=== PATIENT | female | born 1995 | race Caucasian/White ===

== ENCOUNTER 2023-09-13 14:25 | Inpatient (IN) ==
[2023-09-13] MEDS ORDERED: OXYTOCIN 30 UNITS/NSS 30 UNITS/500 ML BAG IV PRN ×2 (14:32→23:57)
[2023-09-13] MEDS ORDERED: LIDOCAINE 1% LOCAL 20 ML VIAL INFIL PRN (14:32)
--- NOTE | 2023-09-13 14:46 | History & Physical Report ---
"Date of Service September 13, 2023 Assessment & Plan (1) Encounter for induction of labor: (2) Group beta Strep positive: Plan Desires unmedicated childbirth, if possible GBS+, will treat with ancef in setting of penicillin allergy anesthesia consulted if epidural desired Pitocin start at 1, increase by 1 arom when indicated monitor tracing, category 1 Admission and Anticipated Discharge Date Admission Date: September 13, 2023 History of Present Illness Primary Care Provider: TANNER RitterC 28 yo at 39w6d admitted for IOL. Has penicillin allergy. Denies GUZMAN, CP, SOB, N/V/D, LE pain. GBS+, RH+, +FM, -LOF, +ctx Allergies Allergy/AdvReac Type Severity Reaction Status Date / Time Penicillins Allergy Severe Anaphylaxis Verified 09/13/23 14:43 tramadol Allergy Intermediate Difficulty Verified 09/13/23 14:43 Breathing sulfa Allergy Hives Uncoded 09/13/23 14:43 Home Medications Medication Instructions Recorded Confirmed Type [id number] acid 1 tab PO DAILY 01/23/23 09/13/23 History [ Multi] esomeprazole magnesium 20 mg 20 mg PO DAILY 08/23/23 09/13/23 History capsule,delayed release (Nexium) Tums 1 tab PO Q16W PRN Heartburn 09/13/23 09/13/23 History Tylenol 1 tab PO DIRECTED PRN Headache 09/13/23 09/13/23 History Patient History Medical History Hx of migraines Varicella vaccination History of chicken pox Arnold-Chiari malformation Surgical History No history of previous surgery Family History Grandmother (Maternal) Hypertension A-fib Pacemaker Denies family history of Ovarian cancer Breast cancer Colorectal cancer Social History Smoking Status: Never smoker Do You Dip or Chew Tobacco: No; Hx Alcohol Use: No Hx Substance Use: No Preferred Language: Bhutanese Communication Ability: Effective Systems Architect Required: No Beliefs That Will Affect Care: None marital status: marital status details: Mendoza Olmedo(28) [phone] Current Living Situation: Spouse and Family Current Living Situation Comment: Patient lives with spouse, daughter, cat- spouse changing litter current occupational status: employed 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 Feels Safe at Home: Yes Safety Concerns: Feels Safe At This Time OB History History : 3 Full term: 2 Premature: 0 Total Number of Induced Abortions: 0 Total Number of Spontaneous Abortions: 0 Ectopics: 0 Multiple births: 0 Number of Living Children: 2 Menstrual History Last menstrual period: Yes Menstrual reliability: definite Flow: normal Menstrual regularity: regular Monthly: Yes Age at menarche: 13 On control pills at conception: No Date of positive home test: 01/07/23 Menstrual history comments: cycles 28 -29 days Details: last pap 2021 [place], normal per patient Review of Systems reviewed, per HPI Physical Exam Physical Exam: General: patient resting comfortably, NAD, non-toxic in appearance, answers questions appropriately. Skin: warm, dry, intact HEENT: NC/AT, anicteric sclera, conjunctiva without injection, moist mucus membranes Heart: +S1/S2, regular, no m/r/g Lungs: equal air entry bilaterally, no rales/rhonchi/wheezes Abd: +BS, soft, NT, gravid uterus Cervical: 3|75|-2, mid, soft Ext: warm, no clubbing/cyanosis or edema Neuro: nonfocal, speech intact, no facial droop, moving all extremities. : FHR baseline 130s, moderate variability, accelerations present, decelerations absent Results & Data Vital Signs (Past 12 Hours) Vital Signs Pulse BP 09/13/23 14:35 86 135/84 Supervising Physician Co-Signing Physician Notes Resident Physician Supervision Note: I interviewed and examined the patient. Discussed with Dr. Ferreira and agree with findings and plan as documented in the note. Any exceptions or clarifications are listed here: presents for elective induction [place] Favorable cervix. Category one fetus. No real uterine activity. GBS positive, pcn allergic so will go with ancef q 8. Plan pitocin and arom. anticipate . Documented By: Madisyn Nunes MD, FACOG Resident Activity Tracking Resident Involvement: Resident Care Provided Care Provided: Adult [facility] Medicine"
[2023-09-13 15:17] LABS: Hematocrit (blood only) 29.1 % (37.0-47.0); Hemoglobin 9.6 g/dl (12.0-16.0); Mean Corpuscular Hemoglobin 27.8 pg (25.0-34.0); Mean Corpuscular Volume 84.3 fL (80.0-100.0); Mean Platelet Volume 12.5 fL (9.4-12.4); Platelet Count 218 K/uL (130-400); RDW Coefficient of Variation 13.5 % (11.5-14.5); RDW Standard Deviation 41.5 fL (36.4-46.3); Red Blood Count 3.45 M/uL (4.20-5.40); White Blood Count 9.88 K/ul (4.8-10.8)
[2023-09-13] MEDS: ceFAZolin 2000MG 2,000 MG/15 ML SYR IV STA (15:49)
[2023-09-13] MEDS ORDERED: Nursing to Pharmacy Communication SCH (16:30)
[2023-09-13] MEDS: OXYTOCIN 30 UNITS/NSS 30 UNITS/500 ML BAG IV PRN (16:35)
--- NOTE | 2023-09-13 17:33 | Labor Progress Brief Note ---
Date of Service September 13, 2023 Subjective First dose of ancef in . Pit at 2 Assessment & Plan (1) Encounter for induction of labor: (2) Group beta Strep positive: Plan fetus category one. arom. continue pit. anticipate . Admission and Anticipated Discharge Date Admission Date: September 13, 2023 Physical Exam Physical Exam: cx--unchanged, arom, clear toco--rare efm--130s wtih mod variability, accels to 160s, no decels Results & Data Vital Signs (Past 12 Hours) Vital Signs Temp Pulse Resp BP 09/13/23 17:29 80 09/13/23 17:29 137/77 09/13/23 16:32 16 09/13/23 16:32 36.7 C 16 09/13/23 16:32 76 09/13/23 16:32 120/72 09/13/23 14:50 36.8 C 86 16 135/84 09/13/23 14:35 86 135/84 Coding Level of Care Code None Diagnoses Encounter for induction of labor Z34.90 Group beta Strep positive B95.1
[2023-09-13] MEDS: LACTATED RINGER'S 1,000 ML IV PRN (18:38)
[2023-09-13] MEDS ORDERED: NALOXONE HCL 1 MG in SODIUM CHLORIDE 0.9% 1,000 ML IV PRN (20:03)
[2023-09-13] MEDS ORDERED: LIDOCAINE 2% MPF LOCAL 5 ML VIAL EPI PRN (20:03)
[2023-09-13] MEDS ORDERED: BUPIVACAINE 0.25% PF 30 ML VIAL EPI PRN (20:03)
[2023-09-13] MEDS ORDERED: NALOXONE HCL 0.4 MG/1 ML VIAL/CARP IV PRN (20:03)
[2023-09-13] MEDS ORDERED: SODIUM CHLORIDE 0.9% PF INJ 10 ML VIAL EPI PRN (20:03)
[2023-09-13] MEDS ORDERED: fentaNYL citrate PF 100 MCG/2 ML VIAL EPI PRN (20:03)
[2023-09-13] MEDS ORDERED: BUPIVACAINE 0.25% PF 30 ML VIAL EPI STA (20:03)
[2023-09-13] MEDS ORDERED: NALBUPHINE HCL 5 MG in SYRINGE 0 ML IV PRN (20:03)
[2023-09-13] MEDS ORDERED: diphenhydrAMINE 50 MG/ML VIAL IV PRN (20:03)
[2023-09-13] MEDS ORDERED: ROPIVACAINE 0.5% PF 5 MG/ML 20 ML VIAL EPI PRN (20:03)
[2023-09-13] MEDS ORDERED: ePHEDrine sulfate 50 MG/ML AMP IV PRN (20:03)
--- NOTE | 2023-09-13 20:04 | Anesthesiology Consultation ---
Date of Service September 13, 2023 Assessment & Plan Chart Review Chart Review: Acceptable Risk for Labor Epidural Consults Requested none History Height/Weight Height: 5 ft 8 in Weight: 84.368 kg Allergies Allergy/AdvReac Type Severity Reaction Status Date / Time Penicillins Allergy Severe Anaphylaxis Verified 09/13/23 14:43 tramadol Allergy Intermediate Difficulty Verified 09/13/23 14:43 Breathing sulfa Allergy Hives Uncoded 09/13/23 14:43 Medications Home Medications Medication Instructions Recorded Confirmed Last Taken [id number] acid 1 tab PO DAILY 01/23/23 09/13/23 09/12/23 08:00 [ Multi] esomeprazole magnesium 20 mg 20 mg PO DAILY 08/23/23 09/13/23 09/12/23 21:00 capsule,delayed release (Nexium) Tums 1 tab PO Q16W PRN Heartburn 09/13/23 09/13/23 Unknown Tylenol 1 tab PO DIRECTED PRN Headache 09/13/23 09/13/23 09/12/23 21:00 Active Medications Generic Name Dose Route Start Last Admin Trade Name Freq PRN Reason Stop Dose Admin Oxytocin 30 units in 500 mls @ 6 mls/hr 09/13/23 14:32 09/13/23 19:15 Pitocin 30 Units/Nss IV 09/15/23 14:31 0.36 units/hr .Q24H PRN 6 mls/hr Labor Induction/Augmentation Titration Protocol 0.36 UNITS/HR Lactated Ringer's 1,000 mls @ 125 mls/hr 09/13/23 14:32 09/13/23 19:03 Lr IV 09/15/23 14:31 125 mls/hr .Q8H PRN Infusion L&D Protocol Protocol Past Medical History Medical History Hx of migraines Varicella vaccination History of chicken pox Arnold-Chiari malformation Past Family History Family History Grandmother (Maternal) Hypertension A-fib Pacemaker Denies family history of Ovarian cancer Breast cancer Colorectal cancer Past Surgical History Surgical History No history of previous surgery Social History Smoking Status: Never smoker Do You Dip or Chew Tobacco: No Hx Alcohol Use: No Hx Substance Use: No substance use type: former substance user Physical Exam Vital Signs Last Vital Signs Temp 36.5 C 09/13/23 19:16 Pulse 71 09/13/23 19:33 Resp 18 09/13/23 19:16 BP 130/81 09/13/23 19:33 Testing Laboratory Results 09/13/23 14:58
[2023-09-13] MEDS: fentANYL 2 MCG/ML BUPIVacaine 0.125%-NSS 100ML BAG EPI PRN (20:36)
--- NOTE | 2023-09-13 21:18 | Labor Progress Brief Note ---
Date of Service September 13, 2023 Subjective Desired epidural, comfortable. Assessment & Plan (1) Encounter for induction of labor: Plan continue current plan. fetus category one. anticipate . Admission and Anticipated Discharge Date Admission Date: September 13, 2023 Physical Exam Physical Exam: cx--5/100/-2 toco--q3-5min, pit t8 efm--140s wtih mod variability , accels present, rare early Results & Data Vital Signs (Past 12 Hours) Vital Signs Temp Pulse Resp BP Pulse Ox 09/13/23 21:14 92 09/13/23 21:14 70 09/13/23 21:14 113/58 L 09/13/23 21:12 91 09/13/23 21:12 73 09/13/23 21:09 93 09/13/23 21:09 68 09/13/23 21:07 100 09/13/23 21:07 55 L 09/13/23 21:02 95 09/13/23 21:02 64 09/13/23 20:57 96 09/13/23 20:57 60 09/13/23 20:56 55 L 09/13/23 20:56 122/64 09/13/23 20:54 52 L 09/13/23 20:54 117/61 09/13/23 20:53 90 09/13/23 20:53 65 09/13/23 20:52 60 09/13/23 20:52 120/70 09/13/23 20:51 97 09/13/23 20:51 59 L 09/13/23 20:50 18 09/13/23 20:50 18 09/13/23 20:50 58 L 09/13/23 20:50 121/63 09/13/23 20:48 56 L 09/13/23 20:48 122/65 09/13/23 20:47 94 09/13/23 20:47 62 09/13/23 20:46 94 09/13/23 20:46 65 09/13/23 20:46 68 09/13/23 20:46 123/66 09/13/23 20:45 18 09/13/23 20:45 18 09/13/23 20:44 59 L 09/13/23 20:44 118/68 09/13/23 20:42 94 09/13/23 20:42 67 09/13/23 20:42 125/69 09/13/23 20:41 95 09/13/23 20:41 62 09/13/23 20:40 18 09/13/23 20:40 18 09/13/23 20:40 63 09/13/23 20:40 124/65 09/13/23 20:38 68 09/13/23 20:38 123/68 09/13/23 20:36 94 09/13/23 20:36 59 L 09/13/23 20:36 124/62 09/13/23 20:35 18 09/13/23 20:35 18 09/13/23 20:35 94 09/13/23 20:35 62 09/13/23 20:34 80 09/13/23 20:34 131/68 09/13/23 20:31 18 09/13/23 20:31 36.5 C 18 09/13/23 20:31 97 09/13/23 20:31 43 L 09/13/23 20:30 94 09/13/23 20:30 58 L 09/13/23 20:26 94 09/13/23 20:26 75 09/13/23 20:25 94 09/13/23 20:25 88 09/13/23 20:21 94 09/13/23 20:21 84 09/13/23 20:19 94 09/13/23 20:19 78 09/13/23 20:16 95 09/13/23 20:16 100 H 09/13/23 20:13 92 09/13/23 20:13 87 09/13/23 20:11 97 09/13/23 20:11 79 09/13/23 20:06 96 09/13/23 20:06 76 09/13/23 19:33 71 09/13/23 19:33 130/81 09/13/23 19:16 36.5 C 18 09/13/23 19:04 82 09/13/23 19:04 124/73 09/13/23 18:37 73 09/13/23 18:37 137/76 09/13/23 18:36 18 09/13/23 18:36 36.9 C 18 09/13/23 17:31 18 09/13/23 17:31 36.9 C 18 09/13/23 17:29 80 09/13/23 17:29 137/77 09/13/23 16:32 16 09/13/23 16:32 36.7 C 16 09/13/23 16:32 76 09/13/23 16:32 120/72 09/13/23 14:50 36.8 C 86 16 135/84 09/13/23 14:35 86 135/84 Coding Level of Care Code None Diagnoses Encounter for induction of labor Z34.90
[2023-09-13] MEDS: ePHEDrine sulfate 50 MG/ML AMP ONE (21:42)
[2023-09-13] MEDS: BUPIVACAINE 0.25% PF 30 ML VIAL ONE (21:42)
[2023-09-13] MEDS: fentaNYL citrate PF 100 MCG/2 ML VIAL ONE (21:43)
[2023-09-13] MEDS: LIDOCAINE 2%/EPINEPHRINE 1:200,000 20 ML PF ONE (21:43)
[2023-09-13] MEDS: fentANYL 2 MCG/ML BUPIVacaine 0.125%-NSS 100ML BAG ONE (21:43)
[2023-09-13] MEDS: SODIUM CHLORIDE 0.9% PF INJ 10 ML VIAL ONE (21:44)
[2023-09-13] MEDS: fentaNYL citrate PF 100 MCG/2 ML VIAL EPI STA (21:44)
[2023-09-13] MEDS: LIDOCAINE 2%/EPINEPHRINE 1:200,000 20 ML PF EPI STA (21:44)
[2023-09-13] MEDS: SODIUM CHLORIDE 0.9% PF INJ 10 ML VIAL EPI STA (21:45)
[2023-09-13] MEDS ORDERED: ONDANSETRON INJ 2 MG/ML 2 ML VIAL IV ONE ×2 (22:36→22:39)
[2023-09-13] MEDS: ONDANSETRON INJ 2 MG/ML 2 ML VIAL ONE (22:45)
[2023-09-13] MEDS: ceFAZolin 1000MG 1,000 MG/7.5 ML SYR IV PRN (23:27)
[2023-09-13] MEDS ORDERED: oxyCODONE/ACETAMINOPHEN 5mg/325mg TAB PO PRN (23:57)
[2023-09-13] MEDS ORDERED: HYDROCORTISONE ACETATE 25 MG SUPP PR PRN (23:57)
[2023-09-13] MEDS ORDERED: BENZOCAINE 20% SPRY 85 APPLN/85 GM CAN EXT PRN (23:57)
--- NOTE | 2023-09-13 23:58 | Delivery Summary ---
Vaginal Delivery Summary Date of Service September 13, 2023 Vaginal Delivery Summary Pre-operative Diagnosis: at 39 weeks elective iol Post-operative Diagnosis: same Procedure: pitocin induction arom epidural EBL: 329cc Anesthesia: epidural Procedure: The patient presented to labor and delivery for IOL. She got treated for GBS with two doses of antibiotics. She underwent pitocin induction and arom. She then got an epidural. She progressed to c/c/+1. The patient pushed for 2 contractions to deliver a viable female in nato position. The nose and mouth were bulb suctioned on the perineum and the rest of the was then delivered without difficulty. The baby was vigorous. The nose and mouth were again bulb suctioned and the infant was placed in the maternal abdomen for drying and attention. Cord was clamped and cut at one minute of life. Cord blood and segment obtained. Placenta delivered spontaneous, intact with a three vessel cord. Cervix/sulci/rectum/perineum were intact. Hemostasis obtained with dilute pitocin and fundal massage. Apgars were pending. Mother and baby doing well at the end of the delivery[place] [facility] [place] Delivery Type Details: [facility]
[2023-09-14] MEDS: IBUPROFEN 600 MG TAB PO PRN (00:42)
--- NOTE | 2023-09-14 06:17 | Obstetrical Progress Note ---
Date of Service September 14, 2023 Assessment & Plan (1) care following vaginal delivery: Plan: Doing well encourage ambulation pain control anticipate dc tomorrow Admission and Anticipated Discharge Date Admission Date: September 13, 2023 Supervising Physician Co-Signing Physician Notes Resident Physician Supervision Note: I interviewed and examined the patient. Discussed with Dr. Ferreira and agree with findings and plan as documented in the note. Any exceptions or clarifications are listed here: Doing well. Routine care. Documented By: Madisyn Nunes MD, FACOG Subjective 28 yo post day 1 s/p Ambulation: ambulating normally Voiding: no voiding problems Passing Gas:: Yes Diet Tolerance:: regular diet Lochia:: Small Current Pain Level: minimal Resting comfortably this AM in NAD. Denies GUZMAN, CP, SOB, N/V/D, LE pain/swelling. Review of Systems Review of Systems: reviewed, per HPI Physical Exam Physical Exam: General: patient resting comfortably, NAD, non-toxic in appearance, answers questions appropriately. Skin: warm, dry, intact HEENT: NC/AT, anicteric sclera, conjunctiva without injection, moist mucus membranes. Heart: +S1/S2, regular, no m/r/g Lungs: equal air entry bilaterally, no rales/rhonchi/wheezes Abd: +BS, soft, NT/ND, uterine fundus firm at umbilicus Ext: warm, no clubbing/cyanosis or edema, Karen's neg. Neuro: nonfocal, speech intact, no facial droop, moving all extremities. Results & Data Vital Signs (Past 12 Hours) Vital Signs Temp Pulse Pulse Resp BP BP Pulse Ox 09/14/23 02:37 36.3 C L 75 18 116/71 97 09/14/23 02:00 18 09/14/23 01:54 70 116/72 09/14/23 01:39 72 121/76 09/14/23 01:30 18 09/14/23 01:25 81 120/73 09/14/23 01:09 70 135/74 09/14/23 01:00 18 09/14/23 00:54 73 123/66 09/14/23 00:45 18 09/14/23 00:40 71 122/65 09/14/23 00:30 18 09/14/23 00:25 81 122/62 09/14/23 00:15 18 09/14/23 00:10 75 132/72 09/14/23 00:00 18 09/13/23 23:54 71 09/13/23 23:54 133/83 09/13/23 23:47 89 L 09/13/23 23:47 68 09/13/23 23:45 89 L 09/13/23 23:45 73 09/13/23 23:42 90 09/13/23 23:42 78 09/13/23 23:37 97 09/13/23 23:37 90 09/13/23 23:35 93 09/13/23 23:35 76 09/13/23 23:32 96 09/13/23 23:32 66 09/13/23 23:30 91 09/13/23 23:30 66 09/13/23 23:27 95 09/13/23 23:27 64 09/13/23 23:23 94 09/13/23 23:23 63 09/13/23 23:22 96 09/13/23 23:22 61 09/13/23 23:17 100 09/13/23 23:17 65 09/13/23 23:16 94 09/13/23 23:16 58 L 09/13/23 23:12 98 09/13/23 23:12 56 L 09/13/23 23:11 93 09/13/23 23:11 72 09/13/23 23:07 91 09/13/23 23:07 58 L 09/13/23 23:05 89 L 09/13/23 23:05 70 09/13/23 23:04 68 09/13/23 23:04 117/70 09/13/23 23:02 95 09/13/23 23:02 66 09/13/23 22:58 93 09/13/23 22:58 62 09/13/23 22:58 115/63 09/13/23 22:57 86 L 09/13/23 22:57 63 09/13/23 22:53 94 09/13/23 22:53 59 L 09/13/23 22:52 95 09/13/23 22:52 57 L 09/13/23 22:47 96 09/13/23 22:47 60 09/13/23 22:47 94 09/13/23 22:47 67 09/13/23 22:43 61 09/13/23 22:43 144/65 H 09/13/23 22:42 97 09/13/23 22:42 66 09/13/23 22:39 94 09/13/23 22:39 77 09/13/23 22:37 96 09/13/23 22:37 61 09/13/23 22:37 18 09/13/23 22:37 36.6 C 18 09/13/23 22:33 94 09/13/23 22:33 66 09/13/23 22:32 96 09/13/23 22:32 63 09/13/23 22:28 92 09/13/23 22:28 71 09/13/23 22:28 124/72 09/13/23 22:27 92 09/13/23 22:27 75 09/13/23 22:22 90 09/13/23 22:22 64 09/13/23 22:22 94 09/13/23 22:22 56 L 09/13/23 22:17 94 09/13/23 22:17 63 09/13/23 22:16 94 09/13/23 22:16 73 09/13/23 22:13 59 L 09/13/23 22:13 122/70 09/13/23 22:12 98 09/13/23 22:12 62 09/13/23 22:09 94 09/13/23 22:09 55 L 09/13/23 22:07 96 09/13/23 22:07 56 L 09/13/23 22:02 93 09/13/23 22:02 65 09/13/23 21:57 93 09/13/23 21:57 62 09/13/23 21:57 110/58 L 09/13/23 21:52 95 09/13/23 21:52 57 L 09/13/23 21:48 93 09/13/23 21:48 58 L 09/13/23 21:47 92 09/13/23 21:47 60 09/13/23 21:43 54 L 09/13/23 21:43 115/61 09/13/23 21:43 91 09/13/23 21:43 55 L 09/13/23 21:42 96 09/13/23 21:42 56 L 09/13/23 21:37 94 09/13/23 21:37 56 L 09/13/23 21:32 96 09/13/23 21:32 55 L 09/13/23 21:27 95 09/13/23 21:27 65 09/13/23 21:27 109/57 L 09/13/23 21:25 92 09/13/23 21:25 64 09/13/23 21:22 97 09/13/23 21:22 61 09/13/23 21:19 94 09/13/23 21:19 63 09/13/23 21:17 96 09/13/23 21:17 62 09/13/23 21:14 92 09/13/23 21:14 70 09/13/23 21:14 113/58 L 09/13/23 21:12 91 09/13/23 21:12 73 09/13/23 21:09 93 09/13/23 21:09 68 09/13/23 21:07 100 09/13/23 21:07 55 L 09/13/23 21:02 95 09/13/23 21:02 64 09/13/23 20:57 96 09/13/23 20:57 60 09/13/23 20:56 55 L 09/13/23 20:56 122/64 09/13/23 20:54 52 L 09/13/23 20:54 117/61 09/13/23 20:53 90 09/13/23 20:53 65 09/13/23 20:52 60 09/13/23 20:52 120/70 09/13/23 20:51 97 09/13/23 20:51 59 L 09/13/23 20:50 18 09/13/23 20:50 18 09/13/23 20:50 58 L 09/13/23 20:50 121/63 09/13/23 20:48 56 L 09/13/23 20:48 122/65 09/13/23 20:47 94 09/13/23 20:47 62 09/13/23 20:46 94 09/13/23 20:46 65 09/13/23 20:46 68 09/13/23 20:46 123/66 09/13/23 20:45 18 09/13/23 20:45 18 09/13/23 20:44 59 L 09/13/23 20:44 118/68 09/13/23 20:42 94 09/13/23 20:42 67 09/13/23 20:42 125/69 09/13/23 20:41 95 09/13/23 20:41 62 09/13/23 20:40 18 09/13/23 20:40 18 09/13/23 20:40 63 09/13/23 20:40 124/65 09/13/23 20:38 68 09/13/23 20:38 123/68 09/13/23 20:36 94 09/13/23 20:36 59 L 09/13/23 20:36 124/62 09/13/23 20:35 18 09/13/23 20:35 18 09/13/23 20:35 94 09/13/23 20:35 62 09/13/23 20:34 80 09/13/23 20:34 131/68 09/13/23 20:31 18 09/13/23 20:31 36.5 C 18 09/13/23 20:31 97 09/13/23 20:31 43 L 09/13/23 20:30 94 09/13/23 20:30 58 L 09/13/23 20:26 94 09/13/23 20:26 75 09/13/23 20:25 94 09/13/23 20:25 88 09/13/23 20:21 94 09/13/23 20:21 84 09/13/23 20:19 94 09/13/23 20:19 78 09/13/23 20:16 95 09/13/23 20:16 100 H 09/13/23 20:13 92 09/13/23 20:13 87 09/13/23 20:11 97 09/13/23 20:11 79 09/13/23 20:06 96 09/13/23 20:06 76 09/13/23 19:33 71 09/13/23 19:33 130/81 09/13/23 19:16 36.5 C 18 09/13/23 19:04 82 09/13/23 19:04 124/73 09/13/23 18:37 73 09/13/23 18:37 137/76 09/13/23 18:36 18 09/13/23 18:36 36.9 C 18 O2 Del Method 09/14/23 02:37 Room Air 09/14/23 02:00 09/14/23 01:54 09/14/23 01:39 09/14/23 01:30 09/14/23 01:25 09/14/23 01:09 09/14/23 01:00 09/14/23 00:54 09/14/23 00:45 09/14/23 00:40 09/14/23 00:30 09/14/23 00:25 09/14/23 00:15 09/14/23 00:10 09/14/23 00:00 09/13/23 23:54 09/13/23 23:54 09/13/23 23:47 09/13/23 23:47 09/13/23 23:45 09/13/23 23:45 09/13/23 23:42 09/13/23 23:42 09/13/23 23:37 09/13/23 23:37 09/13/23 23:35 09/13/23 23:35 09/13/23 23:32 09/13/23 23:32 09/13/23 23:30 09/13/23 23:30 09/13/23 23:27 09/13/23 23:27 09/13/23 23:23 09/13/23 23:23 09/13/23 23:22 09/13/23 23:22 09/13/23 23:17 09/13/23 23:17 09/13/23 23:16 09/13/23 23:16 09/13/23 23:12 09/13/23 23:12 09/13/23 23:11 09/13/23 23:11 09/13/23 23:07 09/13/23 23:07 09/13/23 23:05 09/13/23 23:05 09/13/23 23:04 09/13/23 23:04 09/13/23 23:02 09/13/23 23:02 09/13/23 22:58 09/13/23 22:58 09/13/23 22:58 09/13/23 22:57 09/13/23 22:57 09/13/23 22:53 09/13/23 22:53 09/13/23 22:52 09/13/23 22:52 09/13/23 22:47 09/13/23 22:47 09/13/23 22:47 09/13/23 22:47 09/13/23 22:43 09/13/23 22:43 09/13/23 22:42 09/13/23 22:42 09/13/23 22:39 09/13/23 22:39 09/13/23 22:37 09/13/23 22:37 09/13/23 22:37 09/13/23 22:37 09/13/23 22:33 09/13/23 22:33 09/13/23 22:32 09/13/23 22:32 09/13/23 22:28 09/13/23 22:28 09/13/23 22:28 09/13/23 22:27 09/13/23 22:27 09/13/23 22:22 09/13/23 22:22 09/13/23 22:22 09/13/23 22:22 09/13/23 22:17 09/13/23 22:17 09/13/23 22:16 09/13/23 22:16 09/13/23 22:13 09/13/23 22:13 09/13/23 22:12 09/13/23 22:12 09/13/23 22:09 09/13/23 22:09 09/13/23 22:07 09/13/23 22:07 09/13/23 22:02 09/13/23 22:02 09/13/23 21:57 09/13/23 21:57 09/13/23 21:57 09/13/23 21:52 09/13/23 21:52 09/13/23 21:48 09/13/23 21:48 09/13/23 21:47 09/13/23 21:47 09/13/23 21:43 09/13/23 21:43 09/13/23 21:43 09/13/23 21:43 09/13/23 21:42 09/13/23 21:42 09/13/23 21:37 09/13/23 21:37 09/13/23 21:32 09/13/23 21:32 09/13/23 21:27 09/13/23 21:27 09/13/23 21:27 09/13/23 21:25 09/13/23 21:25 09/13/23 21:22 09/13/23 21:22 09/13/23 21:19 09/13/23 21:19 09/13/23 21:17 09/13/23 21:17 09/13/23 21:14 09/13/23 21:14 09/13/23 21:14 09/13/23 21:12 09/13/23 21:12 09/13/23 21:09 09/13/23 21:09 09/13/23 21:07 09/13/23 21:07 09/13/23 21:02 09/13/23 21:02 09/13/23 20:57 09/13/23 20:57 09/13/23 20:56 09/13/23 20:56 09/13/23 20:54 09/13/23 20:54 09/13/23 20:53 09/13/23 20:53 09/13/23 20:52 09/13/23 20:52 09/13/23 20:51 09/13/23 20:51 09/13/23 20:50 09/13/23 20:50 09/13/23 20:50 09/13/23 20:50 09/13/23 20:48 09/13/23 20:48 09/13/23 20:47 09/13/23 20:47 09/13/23 20:46 09/13/23 20:46 09/13/23 20:46 09/13/23 20:46 09/13/23 20:45 09/13/23 20:45 09/13/23 20:44 09/13/23 20:44 09/13/23 20:42 09/13/23 20:42 09/13/23 20:42 09/13/23 20:41 09/13/23 20:41 09/13/23 20:40 09/13/23 20:40 09/13/23 20:40 09/13/23 20:40 09/13/23 20:38 09/13/23 20:38 09/13/23 20:36 09/13/23 20:36 09/13/23 20:36 09/13/23 20:35 09/13/23 20:35 09/13/23 20:35 09/13/23 20:35 09/13/23 20:34 09/13/23 20:34 09/13/23 20:31 09/13/23 20:31 09/13/23 20:31 09/13/23 20:31 09/13/23 20:30 09/13/23 20:30 09/13/23 20:26 09/13/23 20:26 09/13/23 20:25 09/13/23 20:25 09/13/23 20:21 09/13/23 20:21 09/13/23 20:19 09/13/23 20:19 09/13/23 20:16 09/13/23 20:16 09/13/23 20:13 09/13/23 20:13 09/13/23 20:11 09/13/23 20:11 09/13/23 20:06 09/13/23 20:06 09/13/23 19:33 09/13/23 19:33 09/13/23 19:16 09/13/23 19:04 09/13/23 19:04 09/13/23 18:37 09/13/23 18:37 09/13/23 18:36 09/13/23 18:36 Resident Activity Tracking Resident Involvement: Resident Care Provided Care Provided: Adult Hospital Medicine
[2023-09-14 07:51] LABS: Hematocrit (blood only) 30.5 % (37.0-47.0); Hemoglobin 9.6 g/dl (12.0-16.0)
--- NOTE | 2023-09-14 08:10 | Anesthesia Procedure Note ---
Date of Service September 14, 2023 Anesthesia Post Epidural Note Vital Signs Vital Signs: Temp Pulse Resp BP Pulse Ox O2 Del Method 36.5 C 60 18 117/71 98 Room Air 09/14/23 08:00 09/14/23 08:00 09/14/23 08:00 09/14/23 08:00 09/14/23 08:00 09/14/23 08:00 Notes Mental Status: alert / awake / arousable and participated in evaluation Nausea / Vomiting: adequately controlled Pain: adequately controlled Airway Patency, RR, SpO2: stable & adequate BP & HR: stable & adequate Hydration State: stable & adequate Neuraxial Anesthesia: was administered and sensory block is resolving Anesthetic Complications: no major complications apparent Epidural: Removed without complications and With tip intact
[2023-09-14] MEDS: DOCUSATE SODIUM 100 MG CAP PO SCH (08:42)
[2023-09-14] MEDS: PRENATAL VITAMIN 1 TAB PO SCH (08:42)
[2023-09-14] MEDS: DIPHTHER/TETAN/PERTUS Vaccine (Tdap, Adol/Adult) 0.5mL IM ONE (09:35)
[2023-09-14] MEDS: ACETAMINOPHEN 325 MG TAB PO PRN (19:47)
[2023-09-14] MEDS: bisacodyL 5 MG TABEC PO SCH (20:48)
--- NOTE | 2023-09-15 07:56 | Obstetrical Progress Note ---
Date of Service September 15, 2023 Assessment & Plan (1) care following vaginal delivery: Day 2 status post vaginal delivery. Doing well today. Stable for discharge. Subjective Ambulation: ambulating normally Voiding: no voiding problems Passing Gas:: Yes Diet Tolerance:: regular diet Lochia:: Moderate Feeding Type:: breast feeding Physical Exam Constitutional WD/WN, vitals as above Respiratory normal respiratory effort; no respiratory distress and no labored breathing Gastrointestinal (Abdomen) Inspection/Auscultation: abdomen normal to inspection; abdomen not distended Percussion/Palpation: abdomen soft; abdomen nontender, no guarding and abdomen not rigid Genitourinary OB Exam Abdomen: + fundal height Fundus: + firm and + relation to umbilicus (Below); not tender or not boggy Results & Data Vital Signs (Past 12 Hours) Vital Signs Temp Pulse Resp BP 09/14/23 23:45 36.5 C 69 18 133/77
[2023-09-15] MEDS ORDERED: bisacodyL 10 MG SUPP PR PRN (23:57)
== END 2023-09-15 10:50 | disposition home or self-care (01) | DRG 807 ==
LOC: 4S1 14:25 → 4E2 09-14 02:34
DX: Z79.899 Other long term (current) drug therapy; Z88.5 Allergy status to narcotic agent; Z37.0 Single live birth; Z88.0 Allergy status to penicillin; Z3A.39 39 weeks gestation of pregnancy; O99.824 Streptococcus B carrier state complicating childbirth; B95.1 Streptococcus, group B, as the cause of diseases classified elsewhere